=== PATIENT | female | born 1995 | race Hispanic/Latino ===

== ENCOUNTER → 2017-05-29 | Day surgery (SDC) | payer OTHER ==
[2017-05-29 19:18] VITALS: BMI 29.3
[2017-05-29 20:04] LABS: Amnisure Test No Membranes Rupture (No Rupture)
[2017-05-29 20:05] LABS: Amnisure Internal Control QC ACCEPTABLE (ACCEPTABLE)
--- NOTE | 2017-05-30 01:33 | PRG ---
DATE OF SERVICE: 05/29/2017 PRIMARY OB: [facility]. She sees Dr. Kramer and Dr. Arnold with Dr. Kramer her principal david campbell. CHIEF COMPLAINT: Leakage of fluid. HISTORY OF PRESENT ILLNESS: The patient is a 22-year-old G2, P1 female with an intrauterine pregnanc y at 36 weeks and 4 days. She reports around 2:30, she was changing her child's diaper and also had noticed that her panties have gotten wet and was unsure if she had ruptured her membranes, so she cam e for evaluation. The patient reports that since that time, she has been having some contractions, n one of which have been very painful. She denies any recent illness, fever, fall, headache, chest jessy n, shortness of breath, nausea or vomiting, diarrhea, constipation or any new rashes. Denies any vag inal bleeding, hip problems or knee problems. 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 PAST SURGICAL HISTORY: Noncontributory. SOCIAL HISTORY: Denies drug, alcohol or tobacco use. Does admit to being a previous smoker. ALLERGIES: No known drug allergies. MEDICATIONS: vitamins. OB LABS: Unavailable this time. REVIEW OF SYSTEMS: Per HPI. PHYSICAL EXAMINATION: VITAL SIGNS: Blood pressure 119/77, heart rate of 93, respiratory rate of 18, temperature 98.3. GENERAL: She appears to be in no acute distress. She is alert and oriented, and cooperative and ple asant to interact with. HEENT: Head is normocephalic, atraumatic. LUNGS: Clear to auscultation bilaterally. HEART: Regular rate and rhythm. ABDOMEN: Gravid, soft, nontender to palpation. EXTREMITIES: Nontender, not edematous. She has no CVA tenderness. Her cervical exam per nursing st aff is 150 and -2 station. heart tracing was performed for threatened labor and interpreted by Dr. Benavidez. Baseline is i n the 120s with moderate long-term variability, positive accelerations, no decelerations. Tocometer shows some irritability much of which is not felt by the patient. AmniSure was collected and found to be negative. ASSESSMENT AND PLAN: Patient is a 22-year-old G2, P1 female with an intrauterine at 36 wee ks and 4 days, who presented with leakage of fluid and has a negative AmniSure test. The patient sweeney s not persist with this leakage of fluid since the event. Patient has been counseled labor precautio ns and been given the results of this testing. Fetus has a category 1 tracing with a reactive NST. The patient has been counseled to keep her appointment at [facility] as scheduled.
== END ==
LOC: L&D/OP 18:38
PROVIDERS: ATTEND Obstetrics & Gynecology
DX: O42.913 Preterm premature rupture of membranes, unspecified as to length of time between rupture and onset of labor, third trimester (principal); O99.89 Other specified diseases and conditions complicating pregnancy, childbirth and the puerperium; M08.00 Unspecified juvenile rheumatoid arthritis of unspecified site; Z79.899 Other long term (current) drug therapy; Z3A.36 36 weeks gestation of pregnancy
CPT/HCPCS: 84112; 99283

== ENCOUNTER 2017-06-08 03:53 | Inpatient (IN) | payer OTHER ==
[2017-06-08 04:50] LABS: Amnisure Test RUPTURE DETECTED (No Rupture)
[2017-06-08 04:51] LABS: Amnisure Internal Control QC ACCEPTABLE (ACCEPTABLE)
[2017-06-08 04:55] VITALS: BMI 29.6
[2017-06-08] MEDS ORDERED: Ibuprofen 800 MG TAB PO PRN (05:13)
[2017-06-08] MEDS ORDERED: Ondansetron HCl/PF 4 MG/2 ML Vial IVP PRN ×3 (05:13→17:03)
[2017-06-08] MEDS ORDERED: Lidocaine 1% (PF) 30 ML VIAL SC PRN (05:13)
[2017-06-08] MEDS ORDERED: Lactated Ringer's 1,000 ML IV SCH (05:15)
[2017-06-08] MEDS: Lactated Ringer's 1,000 ML IV SCH ×2 (05:22→10:51)
[2017-06-08 05:45] LABS: Hemoglobin 10.4 g/dL (12.0-16.0); Mean Corpuscular HGB CONC 33.3 g/dL (32.0-36.0); Mean Corpuscular Hemoglobin 26.9 pg (27.0-31.0); Mean Platelet Volume 9.6 fL (7.4-10.4); Platelet Count 179 thou/uL (130-400); RBC Distribution Width 13.4 % (11.5-14.5); Red Blood Cell (RBC) Count 3.85 mill/uL (4.20-5.40); White Blood Cell (WBC) Count 7.8 thou/uL (4.8-10.8)
[2017-06-08 06:36] LABS: Hep B Surf Ag Non-Reactive S/CO (NonReactive); Syphilis Antibody Nonreactive (Nonreactive); Syphilis Antibody Index 0.04 S/CO (<1.00 Non-Reactive)
[2017-06-08] MEDS ORDERED: LR 500 ML/Oxytocin 10 units 500 ML ONE (08:14)
[2017-06-08] MEDS ORDERED: LR 500 ML/Oxytocin 10 units 500 ML IV SCH (08:30)
--- NOTE | 2017-06-08 08:31 | PDOC.EVN ---
Event Note - Event Note Event Note: ABE TEACHER NOTE: Assumed care this am. Patient seen at bedside. HX is at 37 weeks with ROM, latent labor. Last CX check was 3-4 cm. [facility] Dr Arnold was notified, but possible we assume care) . We will begin pitocin augmentation as EGA early term and ruptured. EGA beyond cut off for steroids. Plan D/W patient.
[2017-06-08] MEDS ORDERED: Bupivacaine 20 ML, Fentanyl 400 MCG in Sodium Chloride 0.9% 72 ML EPIDURAL SCH (10:45)
[2017-06-08] MEDS ORDERED: Naloxone HCl 0.4 mg/ml Vial IVP PRN ×2 (11:13)
[2017-06-08] MEDS ORDERED: Acetaminophen 325 MG TAB PO PRN (11:13)
[2017-06-08] MEDS ORDERED: Eucerin (Mineral Oil/Petrolatum,White) 30 gm Jar TOP PRN (11:13)
[2017-06-08] MEDS ORDERED: ePHEDrine/0.9% NaCl/PF SYRINGE 50 mg/10 ml SLOW IVP PRN (11:13)
[2017-06-08] MEDS ORDERED: Promethazine HCl 25 MG/ML VIAL IM PRN ×2 (11:13→17:03)
[2017-06-08] MEDS ORDERED: Lactated Ringer's 500 ML IV PRN (11:13)
[2017-06-08] MEDS ORDERED: diphenhydrAMINE 50 MG/ML VIAL IVP PRN (11:13)
[2017-06-08] MEDS ORDERED: Communication Order-Pharmacy FS SCH (11:15)
[2017-06-08] MEDS ORDERED: Fentanyl 4mcg/Marcaine 0.1% Cassette 100 ML EPIDURAL SCH (11:15)
--- NOTE | 2017-06-08 12:16 | PDOC.EVN ---
Event Note - Event Note Event Note: Dr Arnold will assist the patient with Delivery. Communication with primary provider complete at around 0900 this AM.
[2017-06-08 12:42] LABS: Amphetamine Not Detected (NotDetected); Barbiturates Screen Not Detected (NotDetected); Benzodiazepine Screen Not Detected (NotDetected); Cocaine Metabolite Screen Not Detected (NotDetected); Medtox Control Line Valid? VALID (VALID); Medtox Reader # READER 4; Methadone Not Detected (NotDetected); Methamphetamine Not Detected (NotDetected); Opiate Screen Not Detected (NotDetected); Oxycodone Screen Not Detected (NotDetected); Phencyclidine (PCP) Not Detected (NotDetected); THC/Cannabinoid Screen Not Detected (NotDetected); Tricyclic Screen Not Detected (NotDetected)
[2017-06-08] MEDS: LR / Pitocin 40 units/1000 ml 1,000 ML IV PRN ×2 (14:39→15:47)
[2017-06-08] MEDS ORDERED: Misoprostol 200 MCG TAB ONE (14:42)
[2017-06-08] MEDS ORDERED: Misoprostol 200 MCG TAB PR SCH (14:45)
--- NOTE | 2017-06-08 14:50 | PDOC.OPDEL ---
OB Operative/Delivery Note Delivery Dr/Surgeon: [facility] Assist: n/a Pre-Delivery Diagnosis: ruptured membrane ( at 37wk) Procedure/Post Delivery Dx: spontaneous vaginal delivery Weeks gestation: 37 Anesthesia: epidural - Findings A Sex: female Weight: 7 lb 9 oz - 1 min: 9 - 5 min: 9 - Additional Findings/Plan Placenta delivered: spontaneous Repaired Obstetrical Laceration: none Estimated blood loss: 300 Post delivery plan: routine recovery
[2017-06-08] MEDS ORDERED: Lanolin Ointment 7 GM TUBE TOP PRN (17:03)
[2017-06-08] MEDS ORDERED: Benzocaine/Menthol 20-0.5% 60 ML CAN TOP PRN (17:03)
[2017-06-08] MEDS ORDERED: Preparation H Ointment 28 GM TUBE PR PRN (17:03)
[2017-06-08] MEDS ORDERED: Bisacodyl 10 MG SUPP PR PRN (17:03)
[2017-06-08] MEDS ORDERED: HYDROcodone/Acetaminophen 5/325 mg Tablet PO PRN ×2 (17:03)
[2017-06-08] MEDS ORDERED: LR / Pitocin 40 units/1000 ml 1,000 ML IV SCH (17:03)
[2017-06-08] MEDS ORDERED: Milk Of Magnesia 30 ML UDCUP PO PRN (17:03)
[2017-06-08] MEDS ORDERED: diphenhydrAMINE 25 MG CAP PO PRN (17:03)
[2017-06-08] MEDS ORDERED: Adacel (T-DAP) 0.5 ML VIAL IM ONE (17:03)
[2017-06-08] MEDS: Ferrous Sulfate 325 MG TAB PO SCH (17:28)
[2017-06-08 17:40] LABS: ALT (SGPT) Less than 7 U/L (8-55); AST (SGOT) 11 U/L (5-34); Albumin 2.9 g/dL (3.5-5.0); Alkaline Phosphatase 158 U/L (40-150); Anion Gap 11 mmol/L (10-20); BUN (Urea Nitrogen) 8 mg/dL (7.0-18.7); Bilirubin, Total 0.4 mg/dL (0.2-1.2); Calc. Creatinine Clearance 179 mL/min (70-130); Calcium 8.4 mg/dL (7.8-10.44); Carbon Dioxide 22 mmol/L (22-29); Chloride 105 mmol/L (98-107); Estimated GFR-MDRD Greater than 90; Glucose 79 mg/dL (70-105); Potassium 4.2 mmol/L (3.5-5.1); Protein, Total 5.9 g/dL (6.0-8.3); Sodium 134 mmol/L (136-145)
[2017-06-08 17:42] LABS: HIV (1/2) Antibody/Antigen Non-Reactive (NonReactive); HIV 1/2 INDEX 0.06 S/CO (<1.00)
[2017-06-08] MEDS: Docusate Calcium (SURFAK) 240 MG CAP PO SCH (19:47)
[2017-06-08] MEDS: Ibuprofen 800 MG TAB PO SCH (19:47)
[2017-06-09] MEDS: Ibuprofen 800 MG TAB PO SCH ×3 (04:54→21:27)
[2017-06-09 05:51] LABS: Hemoglobin 9.3 g/dL (12.0-16.0); Mean Corpuscular HGB CONC 33.2 g/dL (32.0-36.0); Mean Corpuscular Hemoglobin 27.1 pg (27.0-31.0); Mean Corpuscular Volume 81.8 fl (81.0-99.0); Mean Platelet Volume 9.6 fL (7.4-10.4); Platelet Count 132 thou/uL (130-400); RBC Distribution Width 13.4 % (11.5-14.5); Red Blood Cell (RBC) Count 3.43 mill/uL (4.20-5.40); White Blood Cell (WBC) Count 7.4 thou/uL (4.8-10.8)
--- NOTE | 2017-06-09 08:44 | PDOC.PP ---
Post Progress Note Post Day #: 1 PO intake tolerated: yes Flatus: yes Ambulation: yes Vital Signs (12 hours) Temp Pulse Resp BP BP 06/09/17 08:00 97.5 F L 78 18 115/77 06/09/17 04:59 98.0 F 69 16 99/56 L 06/08/17 23:47 98.4 F 76 16 131/87 Weight Weight 195 lb - Physical Examination General: NAD Cardiovascular: RRR Respiratory: non-labored breathing Abdominal: no distention, appropriately TTP Fundus firm & at: umb Skin: no rash Neurological: no gross focal deficits Psychiatric: normal affect Result Diagrams: 06/09/17 05:11 06/08/17 17:12 Additional Labs: Post Labs Hep Bs Antigen Non-Reactive S/CO (NonReactive) 06/08/17 05:27 (1) Vaginal delivery Code(s): O80 - ENCOUNTER FOR FULL-TERM UNCOMPLICATED DELIVERY Status: Acute - Assessment/Plan VSSAF Doing well day 1, lochia < menses, pain controlled Case mgmt consult for scant PNC, UDS neg Elevated BP yesterday- no sx PIH, labs wnl. Cont to monitor. Rh pos RImm Iron for mild anemia Cont PP care, home tomorrow
[2017-06-09] MEDS ORDERED: FLU VACC QS2017-18 36 mo. & older 0.5 ML SYRINGE IM ONE (09:00)
[2017-06-09] MEDS: Docusate Calcium (SURFAK) 240 MG CAP PO SCH ×2 (09:18→21:27)
[2017-06-09] MEDS: Ferrous Sulfate 325 MG TAB PO SCH ×2 (09:18→18:26)
[2017-06-09] MEDS: Prenatal Vitamin 1 TAB PO SCH (09:18)
[2017-06-10] MEDS: Ibuprofen 800 MG TAB PO SCH (05:09)
[2017-06-10 07:48] VITALS: BP 116/62; TEMP 98.5
[2017-06-10] MEDS: Docusate Calcium (SURFAK) 240 MG CAP PO SCH (08:53)
[2017-06-10] MEDS: Prenatal Vitamin 1 TAB PO SCH (08:53)
[2017-06-10] MEDS: Ferrous Sulfate 325 MG TAB PO SCH (08:54)
== END 2017-06-10 12:54 | disposition home or self-care (01) | DRG 775 ==
LOC: L&D/OP 03:53 → L&D 05:01 → 3SW 17:00
PROVIDERS: ADMIT Obstetrics & Gynecology; ATTEND Obstetrics & Gynecology
PROC: 10E0XZZ Delivery of Products of Conception, External Approach (ICD-10-PCS; principal; 2017-06-08)
DX: O80 Encounter for full-term uncomplicated delivery (principal); Z37.0 Single live birth; Z3A.37 37 weeks gestation of pregnancy
CPT/HCPCS: 36415; 51702; 80053; 80306; 84112; 85027; 86780; 87340; 87389; 99283; 99285; J2001; J3010; J3490; J7050; J7120

== ENCOUNTER 2017-06-12 20:59 | Emergency (ER) | payer OTHER ==
[2017-06-12] MEDS ORDERED: Ibuprofen 800 MG TAB ONE (21:07)
[2017-06-12] MEDS ORDERED: predniSONE 10 MG TAB ONE (21:25)
[2017-06-12] MEDS ORDERED: Ondansetron HCl/PF 4 MG/2 ML Vial ONE (21:25)
[2017-06-12] MEDS ORDERED: predniSONE 20 MG TAB ONE (21:25)
[2017-06-12] MEDS ORDERED: Oseltamivir 75 MG CAP ONE (21:33)
[2017-06-12 22:24] LABS: #Lymphocytes 0.9 thou/uL (1.20-3.40); #Monocytes 0.6 thou/uL (0.11-0.59); #Neutrophils 6.6 thou/uL (1.40-6.50); %Basophils 0.5 % (0.0-1.0); %Eosinophils 0.3 % (0.0-10.0); %Lymphocytes 10.6 % (21.0-51.0); %Monocytes 6.9 % (0.0-10.0); %Neutrophils 81.6 % (42.0-75.0); Hemoglobin 10.1 g/dL (12.0-16.0); Mean Corpuscular HGB CONC 32.6 g/dL (32.0-36.0); Mean Corpuscular Volume 79.5 fl (81.0-99.0); Mean Platelet Volume 7.7 fL (7.4-10.4); Platelet Count 192 thou/uL (130-400); RBC Distribution Width 13.2 % (11.5-14.5); Red Blood Cell (RBC) Count 3.89 mill/uL (4.20-5.40)
[2017-06-12 22:35] LABS: ALT (SGPT) 29 U/L (8-55); AST (SGOT) 22 U/L (5-34); Albumin 3.5 g/dL (3.5-5.0); Alkaline Phosphatase 138 U/L (40-150); Anion Gap 13 mmol/L (10-20); BUN (Urea Nitrogen) 12 mg/dL (7.0-18.7); Bilirubin, Total 0.3 mg/dL (0.2-1.2); Calc. Creatinine Clearance 0 mL/min (70-130); Calcium 8.8 mg/dL (7.8-10.44); Carbon Dioxide 22 mmol/L (22-29); Chloride 105 mmol/L (98-107); Estimated GFR-MDRD 87; Globulin 3.6 g/dL (2.4-3.5); Glucose 103 mg/dL (70-105); Lipase 14 U/L (8-78); Potassium 3.5 mmol/L (3.5-5.1); Protein, Total 7.1 g/dL (6.0-8.3); Sodium 136 mmol/L (136-145)
--- NOTE | 2017-06-12 22:36 | RAD ---
UPRIGHT PORTABLE CHEST ONE VIEW: 06/12/17 HISTORY: 22-year-old female with history of cough, fever, nausea. Heart size is normal. The lungs are clear. No pneumonia, edema, pleural effusion or other acute proce ss. IMPRESSION: No acute intrathoracic disease. Stable from prior study 03/18/14 given less inspiration. POS: [facility]
[2017-06-12 23:00] LABS: Bacteria/HPF 2+ HPF (None Seen); Bilirubin Negative (Negative); Blood, Urine Large (Negative); Clarity Slightly Cloudy (Clear); Glucose, Urine (Dipstick) Negative (Negative); Hyaline Casts/LPF NONE SEEN LPF (0-3 Hyaline); Leukocyte Moderate (Negative); Nitrite Negative (Negative); Protein, Urine (Dipstick) Negative (Neg-Trace); Squamous Epithelial 0-3 HPF (0-3); Urobilinogen 0.2 mg/dL (0.2-1.0)
[2017-06-12] MEDS ORDERED: cefTRIAXone\\ROCEPHIN 1 GM VIAL ONE (23:09)
== END 2017-06-12 23:27 | disposition home or self-care (01) ==
LOC: SCSER 20:59
DX: N39.0 Urinary tract infection, site not specified (principal); R50.9 Fever, unspecified; R11.0 Nausea; F41.9 Anxiety disorder, unspecified
CPT/HCPCS: 71045; 80053; 81003; 81015; 83605; 83690; 85025; 87040; 87086; 93005; 96361; 96374; 96375; J0696; J2405; J7506; J7512

== ENCOUNTER 2017-07-22 15:00 | Emergency (ER) | payer OTHER ==
[2017-07-22 15:59] LABS: #Lymphocytes 1.1 thou/uL (1.20-3.40); #Monocytes 0.5 thou/uL (0.11-0.59); #Neutrophils 5.5 thou/uL (1.40-6.50); %Basophils 0.5 % (0.0-1.0); %Eosinophils 0.5 % (0.0-10.0); %Lymphocytes 15.5 % (21.0-51.0); %Monocytes 6.2 % (0.0-10.0); %Neutrophils 77.2 % (42.0-75.0); Hemoglobin 13.7 g/dL (12.0-16.0); Mean Corpuscular HGB CONC 32.6 g/dL (32.0-36.0); Mean Corpuscular Hemoglobin 26.5 pg (27.0-31.0); Mean Corpuscular Volume 81.3 fl (81.0-99.0); Mean Platelet Volume 8.3 fL (7.4-10.4); Platelet Count 282 thou/uL (130-400); RBC Distribution Width 14.4 % (11.5-14.5); Red Blood Cell (RBC) Count 5.16 mill/uL (4.20-5.40); White Blood Cell (WBC) Count 7.2 thou/uL (4.8-10.8)
[2017-07-22 16:22] LABS: BHCG - Serum Negative (NEGATIVE); Pregs Control Background? CLEAR/WHITE (CLR/WHITE); Pregs Control Bar Appear? YES (CONTROL BAR)
[2017-07-22 16:25] LABS: ALT (SGPT) 25 U/L (8-55); AST (SGOT) 19 U/L (5-34); Albumin 4.6 g/dL (3.5-5.0); Alkaline Phosphatase 102 U/L (40-150); Anion Gap 15 mmol/L (10-20); BUN (Urea Nitrogen) 14 mg/dL (7.0-18.7); Bilirubin, Total 0.3 mg/dL (0.2-1.2); Calc. Creatinine Clearance 0 mL/min (70-130); Carbon Dioxide 22 mmol/L (22-29); Chloride 104 mmol/L (98-107); Estimated GFR-MDRD Greater than 90; Globulin 3.4 g/dL (2.4-3.5); Glucose 96 mg/dL (70-105); Lipase 16 U/L (8-78); Potassium 3.6 mmol/L (3.5-5.1); Sodium 137 mmol/L (136-145)
[2017-07-22] MEDS ORDERED: Morphine 2 MG/ML SYRINGE ONE (16:45)
[2017-07-22] MEDS ORDERED: Ondansetron HCl/PF 4 MG/2 ML Vial ONE (16:45)
--- NOTE | 2017-07-22 17:49 | ULT ---
RIGHT UPPER QUADRANT SONOGRAM: 07/22/17 HISTORY: Right upper quadrant pain. FINDINGS: Shadowing sludge and stones are apparent within the gallbladder lumen. Patient was not tender over th e gallbladder fossa at the time of the exam. Common duct is 0.5 cm. Liver is unremarkable without foc al mass or intrahepatic biliary dilatation. No free fluid. IMPRESSION: Cholelithiasis. No evidence of acute biliary obstruction. POS: [facility]
== END 2017-07-22 18:58 | disposition home or self-care (01) ==
LOC: ERS 15:00
DX: K80.20 Calculus of gallbladder without cholecystitis without obstruction (principal); M06.9 Rheumatoid arthritis, unspecified; F17.210 Nicotine dependence, cigarettes, uncomplicated; F41.9 Anxiety disorder, unspecified
CPT/HCPCS: 36415; 76705; 80053; 83690; 84703; 85025; 96361; 96374; 96375; 99406; J2270; J2405

== ENCOUNTER 2020-08-04 20:35 | Emergency (ER) | payer OTHER | END 2020-08-04 22:54 | disposition home or self-care (01) | LOC: ERS 20:35 | DX: S93.401A Sprain of unspecified ligament of right ankle, initial encounter (principal); M06.9 Rheumatoid arthritis, unspecified; F17.210 Nicotine dependence, cigarettes, uncomplicated; W11.XXXA Fall on and from ladder, initial encounter ==